=== PATIENT | female | born 1970 ===

== ENCOUNTER 2025-02-09 08:02 | Day surgery (SDC) | payer OTHER ==
[2025-01-31 12:31] LABS: INR 1.03; PARTIAL THROMBOPLASTIN TIME 28.2 SECONDS (22.0-34.0); PROTHROMBIN TIME 11.2 SECONDS (9.0-11.5)
[2025-01-31 13:06] VITALS: BP 120/73
[~2025-02-09] VITALS: Ht 157.5 cm; Wt 59.0 kg
[~2025-02-09 08:02] MED LIST: MINOCYCLINE PO; PROMETRIUM200 MG PO; ROSUVASTATIN CAL5 MG PO; ZOLOFT100 MG PO
[2025-02-09] MEDS ORDERED: METRONIDAZOLE/SODIUM CHLORIDE 500 MG/100 ML PIGGYBACK IV ONE ×2 (09:52→10:45)
[2025-02-09] MEDS ORDERED: CEFTRIAXONE SODIUM 2,000 MG VIAL ONE (09:52)
[2025-02-09] MEDS ORDERED: HEMOSTATIC MATRIX 1 KIT KIT TOP ONE ×2 (10:11→10:45)
[2025-02-09] MEDS ORDERED: DIBUCAINE 30 GM TUBE ONE (10:13)
[2025-02-09] MEDS ORDERED: LIDOCAINE HCL 1%/EPINEPHRINE 20ML VIAL IJ ONE ×2 (10:13→10:45)
[2025-02-09] MEDS ORDERED: BUPIVACAINE HCL/MPF 0.5% 30ML VIAL ONE (10:13)
[2025-02-09] MEDS ORDERED: POVIDONE-IODINE 118 ML BOTT TOP ONE ×2 (10:13→10:45)
[2025-02-09] MEDS ORDERED: DIBUCAINE 30 GM TUBE RECTAL ONE (10:45)
[2025-02-09] MEDS ORDERED: CEFTRIAXONE SODIUM 2,000 MG VIAL IV ONE (10:45)
[2025-02-09] MEDS ORDERED: BUPIVACAINE HCL 30 ML VIAL IJ ONE (10:45)
[2025-02-09] MEDS ORDERED: BUPIVACAINE LIPOSOME/PF 266 MG/20 ML VIAL IJ ONE ×2 (10:54→11:45)
[2025-02-09] MEDS ORDERED: CELECOXIB200 MG PO (13:36)
[2025-02-09] MEDS ORDERED: NEURONTIN300 MG PO (13:36)
[2025-02-09] MEDS ORDERED: PERCOCET 5-3251 EACH PO (13:37)
[2025-02-09] MEDS ORDERED: INTESTINEX680 M1 PO (13:37)
[2025-02-09] MEDS ORDERED: MORPHINE SULFATE 4 MG/ML VIAL IV ONE (14:25)
== END 2025-02-09 17:40 | disposition home or self-care (01) ==
LOC: CIR.AMB 08:02
PROVIDERS: ATTEND Surgery
DX: N81.6 Rectocele (principal); K62.3 Rectal prolapse; R15.2 Fecal urgency